=== PATIENT | male | born 1960 | race Caucasian/White ===

== ENCOUNTER 2023-09-04 08:47 | Emergency (ER) | payer SELFPAY ==
[2023-09-04] MEDS ORDERED: Sodium Chloride 0.9% 1,000 ML IV ONE (09:05)
[2023-09-04] MEDS ORDERED: Sodium Chloride 0.9% 10 ML Syringe FLUSH PRN (09:05)
[2023-09-04 09:16] LABS: BASOPHILS PERCENT AUTO 0.8 % (0.3-3.8); HEMATOCRIT 40.8 % (38.3-50.1); HEMOGLOBIN 13.8 g/dL (12.9-17.7); LYMPHOCYTES ABSOLUTE AUTO 1.5 x10-3/uL (0.5-4.5); LYMPHOCYTES PERCENT AUTO 33.2 % (15.8-45.3); MEAN CORPUSCULAR HGB CONC 33.8 g/dL (28.7-35.3); MEAN PLATELET VOLUME 6.4 fL (6.7-11.0); MONOCYTES ABSOLUTE AUTO 0.6 x10-3/uL (0.0-1.2); NEUTROPHILS ABSOLUTE AUTO 2.4 x10-3/uL (1.7-6.9); PLATELET COUNT,PLT 135 x10(3)uL (117-477); RED BLOOD CELL COUNT 3.83 x10(6)uL (3.90-5.90); RED CELL DISTRIBUTION WIDTH 13.4 % (12.4-15.0); WHITE BLOOD CELL COUNT,WBC 4.6 x10-3/uL (3.2-10.1)
[2023-09-04 09:19] LABS: BLOOD UREA NITROGEN,BUN 10 mg/dL (7-18); BUN/CREATININE RATIO 7.1 (9-20); CALCIUM 9.4 mg/dL (8.6-10.2); CARBON DIOXIDE,CO2 26 mmol/L (21-32); CHLORIDE,CL 105 mmol/L (100-110); CREATININE 1.4 mg/dL (0.70-1.30); ESTIMATED GFR 57 mL/min (>60); GLUCOSE RANDOM 96 mg/dL (80-116); POTASSIUM,K 3.8 mmol/L (3.5-5.3); SODIUM,NA 143 mmol/L (135-145)
[2023-09-04 09:29] LABS: C-REACTIVE PROTEIN <0.50 mg/dL (<0.50); MEAN CORPUSCULAR VOLUME 106.7 fL (80.8-98.7); TROPONIN I 7.5 pg/mL (4.0-60.3)
[2023-09-04 09:30] LABS: A/G RATIO 1.5; ALBUMIN 4.2 g/dL (3.2-4.6); ALKALINE PHOSPHATASE 56 IU/L (56-112); ASPARTATE AMNIOTRANSFERASE,AST 127 IU/L (5-25); BILIRUBIN TOTAL 0.9 mg/dL (0.1-1.3); MAGNESIUM 1.8 mg/dL (1.8-2.5); PROTEIN TOTAL,TP 7.1 g/dL (6.0-8.0)
[2023-09-04 09:34] LABS: ETHANOL BLOOD MEDICAL 0.42 % (<0.03)
[2023-09-04 09:35] LABS: ALANINE AMINOTRANSFERASE,ALT 166 U/L (12-36)
[2023-09-04 10:07] LABS: BILIRUBIN,URINE NEGATIVE (NEGATIVE); GLUCOSE,URINE NORMAL (NORMAL); KETONES,URINE NEGATIVE (NEGATIVE); LEUKOCYTE ESTERASE,URINE NEGATIVE (NEGATIVE); NITRITE,URINE NEGATIVE (NEGATIVE); OCCULT BLOOD,URINE NEGATIVE (NEGATIVE); PROTEIN,URINE NEGATIVE (NEGATIVE); UROBILINOGEN,URINE NORMAL (NEGATIVE)
[2023-09-04 10:12] LABS: AMPHETAMINES SCREEN, URINE NEGATIVE (NEGATIVE); BARBITURATE SCREEN,URINE NEGATIVE (NEGATIVE); BENZODIAZEPINES SCREEN,URINE NEGATIVE (NEGATIVE); METHADONE SCREEN, URINE NEGATIVE (NEGATIVE); METHAMPHETAMINE SCREEN, URINE NEGATIVE (NEGATIVE); OXYCODONE SCREEN,URINE NEGATIVE (NEGATIVE); THC SCREEN,URINE NEGATIVE (NEGATIVE)
[2023-09-04 10:13] LABS: BUPRENORPHINE SCREEN,URINE NEGATIVE (NEGATIVE)
[2023-09-04 10:26] LABS: APPEARANCE,URINE CLEAR (CLEAR); COLOR,URINE YELLOW (YELLOW); SQUAMOUS EPITHELIAL CELLS,UR FEW (NS,R,O); WBC,URINE 0-5 (0-5)
[2023-09-04 10:27] LABS: BACTERIA,URINE FEW (NS); HYALINE CASTS,URINE FEW (NS)
== END 2023-09-04 10:45 | disposition home or self-care (01) ==
LOC: FB.ED 08:47
DX: F10.120 Alcohol abuse with intoxication, uncomplicated (principal); K70.9 Alcoholic liver disease, unspecified; I25.10 Atherosclerotic heart disease of native coronary artery without angina pectoris; E78.00 Pure hypercholesterolemia, unspecified; I25.2 Old myocardial infarction; Z79.82 Long term (current) use of aspirin; Z79.899 Other long term (current) drug therapy
CPT/HCPCS: 36415; 70450; 80053; 80307; 81001; 83735; 84484; 85025; 86140; 93005; 99285

== ENCOUNTER 2024-01-30 08:27 | Emergency (ER) | payer MEDICAID ==
[2024-01-30 09:47] LABS: BASOPHILS PERCENT AUTO 0.3 % (0.3-3.8); EOSINOPHILS PERCENT AUTO 0.6 % (0.1-6.8); HEMATOCRIT 37.5 % (38.3-50.1); HEMOGLOBIN 12.3 g/dL (12.9-17.7); LYMPHOCYTES ABSOLUTE AUTO 1.1 x10-3/uL (0.5-4.5); LYMPHOCYTES PERCENT AUTO 16.6 % (15.8-45.3); MEAN CORPUSCULAR HGB CONC 32.8 g/dL (28.7-35.3); MEAN CORPUSCULAR VOLUME 109.6 fL (80.8-98.7); MEAN PLATELET VOLUME 6.4 fL (6.7-11.0); MONOCYTES ABSOLUTE AUTO 0.8 x10-3/uL (0.0-1.2); MONOCYTES PERCENT AUTO 12.8 % (5.5-15.2); NEUTROPHILS ABSOLUTE AUTO 4.5 x10-3/uL (1.7-6.9); NEUTROPHILS PERCENT AUTO 69.7 % (40.3-71.8); PLATELET COUNT,PLT 188 x10(3)uL (117-477); RED CELL DISTRIBUTION WIDTH 13.4 % (12.4-15.0); WHITE BLOOD CELL COUNT,WBC 6.5 x10-3/uL (3.2-10.1)
[2024-01-30 09:51] LABS: INR 0.96 (1.00-1.24)
[2024-01-30 09:56] LABS: C-REACTIVE PROTEIN < 0.50 mg/dL (<0.50)
[2024-01-30 09:57] LABS: ETHANOL BLOOD MEDICAL 0.43 % (<0.03)
[2024-01-30 10:00] LABS: BLOOD UREA NITROGEN,BUN 8 mg/dL (7-18); CALCIUM 8.4 mg/dL (8.6-10.2); CARBON DIOXIDE,CO2 24 mmol/L (21-32); CHLORIDE,CL 106 mmol/L (100-110); EST CRCL DRUG DOSING (CG) 85.45 mL/min; ESTIMATED GFR 85 mL/min (>60); GLUCOSE RANDOM 100 mg/dL (80-116); POTASSIUM,K 4.4 mmol/L (3.5-5.3); SODIUM,NA 145 mmol/L (135-145)
[2024-01-30 10:06] LABS: A/G RATIO 1.2; ALANINE AMINOTRANSFERASE,ALT 127 U/L (12-36); ALBUMIN 3.9 g/dL (3.2-4.6); ALKALINE PHOSPHATASE 65 IU/L (56-112); ASPARTATE AMNIOTRANSFERASE,AST 118 IU/L (5-25); BILIRUBIN TOTAL 0.5 mg/dL (0.1-1.3); PROTEIN TOTAL,TP 7.3 g/dL (6.0-8.0)
[2024-01-30 10:19] LABS: RED BLOOD CELL COUNT 3.42 x10(6)uL (3.90-5.90)
[2024-01-30] MEDS: Sodium Chloride 0.9% 1,000 ML IV ONE (10:22)
== END 2024-01-30 14:00 | disposition other institution (70) ==
LOC: FB.ED 08:27
DX: F10.120 Alcohol abuse with intoxication, uncomplicated (principal); E86.0 Dehydration; D53.9 Nutritional anemia, unspecified; E87.20 Acidosis, unspecified; I25.2 Old myocardial infarction; E78.00 Pure hypercholesterolemia, unspecified; I25.10 Atherosclerotic heart disease of native coronary artery without angina pectoris; R94.5 Abnormal results of liver function studies; Z79.82 Long term (current) use of aspirin; Z79.899 Other long term (current) drug therapy; Z95.5 Presence of coronary angioplasty implant and graft; Y90.9 Presence of alcohol in blood, level not specified
CPT/HCPCS: 36415; 80053; 80307; 83605; 85025; 85610; 86140; 96360; 99284; J7030

== ENCOUNTER 2024-12-31 14:19 | Emergency (ER) | payer MEDICAID ==
[2024-12-31 14:58] LABS: EOSINOPHILS PERCENT AUTO 0.9 % (0.1-6.8); HEMATOCRIT 40.4 % (38.3-50.1); HEMOGLOBIN 13.7 g/dL (12.9-17.7); LYMPHOCYTES ABSOLUTE AUTO 1.8 x10-3/uL (0.5-4.5); LYMPHOCYTES PERCENT AUTO 45.4 % (15.8-45.3); MEAN CORPUSCULAR HGB CONC 33.9 g/dL (28.7-35.3); MEAN CORPUSCULAR VOLUME 106.1 fL (80.8-98.7); MEAN PLATELET VOLUME 6.3 fL (6.7-11.0); MONOCYTES ABSOLUTE AUTO 0.4 x10-3/uL (0.0-1.2); MONOCYTES PERCENT AUTO 10.3 % (5.5-15.2); NEUTROPHILS ABSOLUTE AUTO 1.7 x10-3/uL (1.7-6.9); NEUTROPHILS PERCENT AUTO 42.4 % (40.3-71.8); PLATELET COUNT,PLT 175 x10(3)uL (117-477); RED CELL DISTRIBUTION WIDTH 12.9 % (12.4-15.0)
[2024-12-31 15:01] LABS: BLOOD UREA NITROGEN,BUN 14 mg/dL (7-18); BUN/CREATININE RATIO 11.7 (9-20); CALCIUM 9.2 mg/dL (8.6-10.2); CARBON DIOXIDE,CO2 24 mmol/L (21-32); CHLORIDE,CL 101 mmol/L (100-110); CREATININE 1.2 mg/dL (0.70-1.30); EST CRCL DRUG DOSING (CG) 69.16 mL/min; ESTIMATED GFR 68 mL/min (>60); GLUCOSE RANDOM 133 mg/dL (80-116); POTASSIUM,K 4.2 mmol/L (3.5-5.3); SODIUM,NA 139 mmol/L (135-145)
[2024-12-31 15:07] LABS: A/G RATIO 1.3; ALANINE AMINOTRANSFERASE,ALT 137 U/L (12-36); ALBUMIN 4.5 g/dL (3.2-4.6); ALKALINE PHOSPHATASE 52 IU/L (56-112); ASPARTATE AMNIOTRANSFERASE,AST 96 IU/L (5-25); BILIRUBIN TOTAL 0.6 mg/dL (0.1-1.3); PROTEIN TOTAL,TP 7.9 g/dL (6.0-8.0)
[2024-12-31 15:16] LABS: TSH ULTRASENSITIVE 4.56 IU/mL (0.36-3.74)
[2024-12-31 15:18] LABS: C-REACTIVE PROTEIN < 0.50 mg/dL (<0.50); RED BLOOD CELL COUNT 3.81 x10(6)uL (3.90-5.90); TROPONIN I < 4.0 pg/mL (4.0-60.3)
[2024-12-31 15:19] LABS: ETHANOL BLOOD MEDICAL 0.27 % (<0.03)
[2024-12-31 15:20] LABS: APPEARANCE,URINE CLEAR (CLEAR); BILIRUBIN,URINE NEGATIVE (NEGATIVE); COLOR,URINE YELLOW (YELLOW); GLUCOSE,URINE NORMAL (NORMAL); KETONES,URINE NEGATIVE (NEGATIVE); LEUKOCYTE ESTERASE,URINE NEGATIVE (NEGATIVE); NITRITE,URINE NEGATIVE (NEGATIVE); OCCULT BLOOD,URINE NEGATIVE (NEGATIVE); PROTEIN,URINE NEGATIVE (NEGATIVE); UROBILINOGEN,URINE NORMAL (NEGATIVE)
[2024-12-31 15:21] LABS: BACTERIA,URINE FEW (NS); RBC,URINE NOT SEEN (0-5); SQUAMOUS EPITHELIAL CELLS,UR FEW (NS,R,O); WBC,URINE 0-5 (0-5)
[2025-01-03 01:02] LABS: THYROXINE FREE 0.9 ng/dL (0.9-1.7)
== END 2024-12-31 16:45 | disposition home or self-care (01) ==
LOC: FB.ED 14:19
DX: R53.83 Other fatigue (principal); R94.6 Abnormal results of thyroid function studies; R40.0 Somnolence; Z79.82 Long term (current) use of aspirin; Z79.899 Other long term (current) drug therapy
CPT/HCPCS: 36415; 71046; 80053; 80307; 81001; 84439; 84443; 84484; 85025; 86140; 93010; 99284; 99285

== ENCOUNTER 2025-05-17 09:52 | Emergency (ER) | payer MEDICAID ==
[2025-05-17 10:59] LABS: BASOPHILS ABSOLUTE AUTO 0.0 x10-3/uL (0.0-0.3); BASOPHILS PERCENT AUTO 0.6 % (0.3-3.8); EOSINOPHILS ABSOLUTE AUTO 0.0 x10-3/uL (0.0-0.6); EOSINOPHILS PERCENT AUTO 0.6 % (0.1-6.8); LYMPHOCYTES ABSOLUTE AUTO 0.9 x10-3/uL (0.5-4.5); LYMPHOCYTES PERCENT AUTO 24.2 % (15.8-45.3); MEAN PLATELET VOLUME 6.8 fL (6.7-11.0); MONOCYTES ABSOLUTE AUTO 0.3 x10-3/uL (0.0-1.2); MONOCYTES PERCENT AUTO 9.4 % (5.5-15.2); NEUTROPHILS ABSOLUTE AUTO 2.3 x10-3/uL (1.7-6.9); NEUTROPHILS PERCENT AUTO 65.2 % (40.3-71.8); PLATELET COUNT,PLT 92 x10(3)uL (117-477); RED CELL DISTRIBUTION WIDTH 12.7 % (12.4-15.0); WHITE BLOOD CELL COUNT,WBC 3.5 x10-3/uL (3.2-10.1)
[2025-05-17 11:00] LABS: BLOOD UREA NITROGEN,BUN 13 mg/dL (7-18); CARBON DIOXIDE,CO2 26 mmol/L (21-32); CHLORIDE,CL 106 mmol/L (100-110); CREATININE 0.9 mg/dL (0.70-1.30); EST CRCL DRUG DOSING (CG) 91.01 mL/min; ESTIMATED GFR 95 mL/min (>60); GLUCOSE RANDOM 109 mg/dL (80-116); POTASSIUM,K 4.5 mmol/L (3.5-5.3); SODIUM,NA 142 mmol/L (135-145)
[2025-05-17 11:07] LABS: A/G RATIO 1.3; ALANINE AMINOTRANSFERASE,ALT 125 U/L (12-36); ASPARTATE AMNIOTRANSFERASE,AST 132 IU/L (5-25); BILIRUBIN TOTAL 0.7 mg/dL (0.1-1.3); PROTEIN TOTAL,TP 7.0 g/dL (6.0-8.0)
[2025-05-17 11:15] LABS: RED BLOOD CELL COUNT 3.02 x10(6)uL (3.90-5.90)
[2025-05-17 12:37] LABS: GLUCOSE,URINE NORMAL (NORMAL); OCCULT BLOOD,URINE NEGATIVE (NEGATIVE)
[2025-05-17 12:40] LABS: APPEARANCE,URINE CLEAR (CLEAR); SQUAMOUS EPITHELIAL CELLS,UR RARE (NS,R,O)
[2025-05-17 12:56] LABS: AMPHETAMINES SCREEN, URINE NEGATIVE (NEGATIVE); BUPRENORPHINE SCREEN,URINE NEGATIVE (NEGATIVE); METHADONE SCREEN, URINE NEGATIVE (NEGATIVE); METHAMPHETAMINE SCREEN, URINE NEGATIVE (NEGATIVE); OXYCODONE SCREEN,URINE NEGATIVE (NEGATIVE)
== END 2025-05-17 13:28 | disposition home or self-care (01) ==
LOC: FB.ED 09:52
DX: F10.120 Alcohol abuse with intoxication, uncomplicated (principal); I25.10 Atherosclerotic heart disease of native coronary artery without angina pectoris; E78.00 Pure hypercholesterolemia, unspecified; I25.2 Old myocardial infarction; Z95.5 Presence of coronary angioplasty implant and graft; Z79.82 Long term (current) use of aspirin; Z79.899 Other long term (current) drug therapy; Y90.1 Blood alcohol level of 20-39 mg/100 ml
CPT/HCPCS: 36415; 70450; 80053; 80307; 81001; 85025; 99284